=== PATIENT | male | born 1935 | race Caucasian/White ===

== ENCOUNTER → 2020-07-02 | Outpatient (CLI) | payer MEDICARE ==
[2015-03-30 10:42] VITALS: BP 148/63
[~2020-07-02] MED LIST: ASPI-630 PO; ATORVASTATIN CA80 MG PO; CARV12.5 PO; DOCU100C28 PO; DOXA2TAB2 PO; FERR325T58 PO; HYDR12.572 PO; LISI40TA PO; MULT1TAB97 PO; TRIA1CAP3 PO
--- NOTE | 2020-07-02 09:56 | RAD ---
Scrotal ultrasound INDICATION: Testicular pain TECHNIQUE: Grayscale and color Doppler imaging of the scrotal was performed FINDINGS: Right testicle measures 3.3 x 3.5 x 2.6 cm. Normal blood flow with no masses and normal echogenicity. The right epididymis contains a 0.4 x 0.3 x 0.4 cm cyst. Large right hydrocele noted. Left testicle measures 3.1 x 2.8 x 2.6 cm and demonstrates normal blood flow. No masses and no abnormal echogenicity. Left epididymis contains a 2 mm cyst in the head. Small left hydrocele is present. IMPRESSION: Normal testicles with no evidence of torsion. Bilateral hydroceles, right greater than left. Electronically signed by: Kira Blake MD (07/02/2020 9:53 AM) [id number]
== END ==
LOC: US 09:08
PROVIDERS: ATTEND Family Medicine
DX: N43.2 Other hydrocele (principal); N50.811 Right testicular pain; N50.812 Left testicular pain
CPT/HCPCS: 76870